=== PATIENT | female | born 1990 | race Caucasian/White ===

== ENCOUNTER 2019-07-05 13:15 | Emergency (ER) | payer OTHER ==
[~2019-07-05] VITALS: Ht 157.5 cm; Wt 72.6 kg
[2019-07-05] MEDS ORDERED: PRENATAL DHA200 MG (13:35)
== END 2019-07-05 20:47 | disposition home or self-care (01) ==
LOC: ER 13:15
DX: O26.893 Other specified pregnancy related conditions, third trimester (principal); R10.2 Pelvic and perineal pain; Z34.83 Encounter for supervision of other normal pregnancy, third trimester

== ENCOUNTER 2019-07-23 11:16 | Inpatient (IN) | payer OTHER ==
[~2019-07-23] VITALS: Ht 157.5 cm; Wt 76.2 kg
[~2019-07-23 11:16] MED LIST: PRENATAL DHA200 MG
[2019-08-18] MEDS ORDERED: PRENATAL TABLE1 EAC1 (08:06)
== END 2019-08-20 12:13 | disposition home or self-care (01) | DRG 807 ==
LOC: LDR 08-18 07:36 → OB/GYN 08-18 07:36 → LDR 08-18 09:40 → OB/GYN 08-18 12:30
PROVIDERS: ADMIT Specialist
PROC: 10E0XZZ Delivery of Products of Conception, External Approach (ICD-10-PCS; principal; 2019-08-18)
PROC: 0KQM0ZZ Repair Perineum Muscle, Open Approach (ICD-10-PCS; 2019-08-18)
PROC: 3E033VJ Introduction of Other Hormone into Peripheral Vein, Percutaneous Approach (ICD-10-PCS; 2019-08-18)
PROC: 4A1HXCZ Monitoring of Products of Conception, Cardiac Rate, External Approach (ICD-10-PCS; 2019-08-18)
DX: O70.1 Second degree perineal laceration during delivery (principal); Z37.0 Single live birth; Z3A.40 40 weeks gestation of pregnancy

== ENCOUNTER 2022-06-09 12:31 | Emergency (ER) | payer OTHER ==
[~2022-06-09] VITALS: Ht 157.5 cm; Wt 62.6 kg
[~2022-06-09 12:31] MED LIST changes: +PRENATAL TABLE1 EAC1
[2022-06-09] MEDS ORDERED: ZEPOSIA0.92 MG PO (13:38)
== END 2022-06-09 16:01 | disposition home or self-care (01) ==
LOC: ER 12:31
DX: G25.2 Other specified forms of tremor (principal); G35 Multiple sclerosis; Z88.8 Allergy status to other drugs, medicaments and biological substances; Z91.013 Allergy to seafood